=== PATIENT | female | born 1950 | race Caucasian/White ===

== ENCOUNTER → 2017-08-19 | Outpatient (CLI) | payer MEDICARE ==
[~2017-08-19] MED LIST: ALBUAER3 INH; ALPR.25 PO; BETH10TA2 PO; BOSWTAB2 PO; CURCPOW PO; D200CAP2 PO; ESCI20TA PO; FLUT50SP EACH NARE; FLUTI220I INH; LEFL1TAB3 PO; LEXA10TA PO; RANI150T PO; ROSU1TAB6 PO; TURM500C3 PO; VITA20003 PO; [UNRECOGNIZED DRUG - CODE] PO; [UNRECOGNIZED DRUG - CODE] PO
--- NOTE | 2017-08-19 14:28 | RADRPT ---
EXAM DATE/TIME: 08/19/2017 13:14 [place] COMPARISON: CHEST SINGLE AP, February 08, 2015, 9:27. INDICATIONS : Evaluate for pneumonia, pneumothorax or communicable disease. Pre op hysterectomy. MEDICAL HISTORY : None. SURGICAL HISTORY : None. ENCOUNTER: Initial ACUITY: 1 day PAIN SCORE: 0/10 LOCATION: Bilateral chest FINDINGS: A single view of the chest demonstrates the lungs to be symmetrically aerated without evidence of mas s, infiltrate or effusion. The cardiomediastinal contours are unremarkable. Osseous structures are intact. CONCLUSION: No acute cardio pulmonary process. Onur Tarango MD on August 19, 2017 at 14:25 Board Certified Radiologist. This report was verified electronically.
[2017-08-19 14:32] LABS: BILIRUBIN, URINE NEG (NEG); BLOOD, URINE NEG (NEG); GLUCOSE,URINE NEG (NEG); KETONE, URINE NEG (NEG); NITRITE,URINE NEG (NEG); URINE COLOR YELLOW (YELLW/STRAW); URINE LEUKOCYTE ESTERASE TRACE (NEG)
[2017-08-19 14:40] LABS: HEMATOCRIT 37.7 % (35.0-46.0); HEMOGLOBIN 13.2 GM/DL (11.6-15.3); MEAN CELL VOLUME 84.7 FL (80.0-100.0); MEAN CORPUSCULAR HEMOGLOBIN 29.6 PG (27.0-34.0); PLATELET COUNT 213 TH/MM3 (150-450); RED BLOOD COUNT 4.45 MIL/MM3 (4.00-5.30); RED CELL DISTRIBUTION WIDTH 13.6 % (11.6-17.2); WHITE BLOOD COUNT 6.2 TH/MM3 (4.0-11.0)
[2017-08-19 14:42] LABS: MUCUS URINE MANY /lpf (OCC); RBC, URINE 0-3 /hpf (0-3); SQUAMOUS EPITHELIAL CELL URINE > 8 /hpf (0-5)
[2017-08-19 14:43] LABS: BACTERIA, URINE FEW /hpf; RENAL EPITHELIAL CELLS 0-5 /hpf
--- NOTE | 2017-08-20 17:04 | EKG ---
Date Performed: 08/19/2017 Time Performed: 13:26:49 PTAGE: 67 years EKG: Sinus rhythm NORMAL ECG PREVIOUS TRACING : 02/08/2015 08.57 Since the previous tracing, no significant change noted DOCTOR: Kamryn Medina Interpretating Date/Time 08/20/2017 17:03:35
== END ==
LOC: PHPRE 12:54
PROVIDERS: ATTEND Obstetrics & Gynecology
DX: Z01.810 Encounter for preprocedural cardiovascular examination (principal); Z01.811 Encounter for preprocedural respiratory examination; Z01.812 Encounter for preprocedural laboratory examination
CPT/HCPCS: 36415; 71045; 81001; 85027; 86850; 86900; 86901; 86920; 93005

== ENCOUNTER → 2017-08-21 | Day surgery (SDC) | payer MEDICARE ==
[~2017-08-21] VITALS: Ht 167.6 cm; Wt 86.5 kg
[~2017-08-21] MED LIST changes: +ACETAMINOPHEN 1000 MG/100 ML 100 ML IV ONE; -ALPR.25 PO; +CHLORHEXIDINE GLUCONATE 2 % 1 PACK (2 CLOTHS) TOPICAL PRN; -CURCPOW PO; +HYDROmorphone HCL PF 1 MG/ML VIAL ONE; +LACTATED RINGER'S 1000 ML IV PRN; -LEXA10TA PO; +MIDAZOLAM HCL 2 MG/2 ML VIAL ONE; +NALOXONE HCL 0.4 MG/ML AMP ONE; +POVIDONE IODINE 5% (ANTISEPSIS KIT) 4 APPLICATIONS EACH NARE PRN; +SODIUM CHLORID 0.9% 500 ML IV PRN; +VASOPRESSIN 20 UNITS/ML VIAL ONE; -VITA20003 PO; -[UNRECOGNIZED DRUG - CODE] PO; +ceFAZolin 1,000 MG/NS 100 ML IV SCH; +oxyCODONE/ACETAMINOPHEN 5 MG/325 MG TAB ONE
--- NOTE | 2017-08-21 10:01 | PD.OP ---
Operative Report Date of Surgery: August 21, 2017 Preoperative Diagnosis: (1) PMB (postmenopausal bleeding) (2) Polyp of corpus uteri Postoperative Diagnosis: (1) Polyp of corpus uteri (2) PMB (postmenopausal bleeding) Procedure: laparoscopic supracervical hysterectomy with bilateral salpingectomy Anesthesia: NIKOLE Hammond Surgeon: Shiasta Jj Security Support Analyst(s): Rosales Villar Resident Surgeon: n/a Operation and Findings: Indications: [-This 67 y/o has had hysteroscopy and polypectomy in 2011 and 2014. She now has recutrrence of polyps by office biopsy and postmenopausal bleeding. She is also follwed for colon polyps. Juan Antonio grandmother had uterine cancer. She takes no exogenous hormones.] Findings: [-normal pelvis] Procedure: The patient was taken to the operating room and general anesthesia was administered with intubation. The patient was then positioned in low stirrups, and after prep and drape a Dunn catheter was placed. An open-sided speculum was placed and the anterior lip of the cervix was grasped with a tenaculum and the HUMI was placed in the uterus. The 12mm trocar was placed in the umbilicus after insufflation with a Veress needle. Then under direct visualization and using transillumination to avoid major blood vessels, 5mm ports were placed in the right and left lower quadrants. The scope was used with a grasper to note the findings described above. Then using the Harmonic scalpel, the round ligaments were divided, The incision was extended anteriorly from side to side and bladder flap was created. The tubes and ovaries were inspected, then the infundibulopelvic ligaments were transected at the pelvic sidewall and included with the uterine specimen. The broad ligaments were then divided with harmonic scalpel starting at the utero-ovarian ligament, proceeding down to the junction of the cervix and the uterus. Then using a "drilling" technique, the uterus was divided from the cervix. The morcellator was the used to morcellate the uterus and remove it. The suction-heel seam rubber was used throughout the case, and employed at the end of the case to check each pedicle, the ovaries and to irrigate out any remaining clots and debris. The case being complete, the pneumoperitoneum was released, the ports were removed, and the umbilical incision was closed on the fascia with 0 vicryl. 4-0 Monocryl was used subcuticularly on the skin edges, followed by sealing with Dermabond. The patient was awakened and taken to the recovery room awake and breathing on her own. She tolerated the procedure well. Sponge, needle and instrument counts were correct. Shaista Jj MD August 21, 2017 10:01
[2017-08-21 11:22] VITALS: BP 110/56; PULSE 61; RESP 16; TEMP 98; O2SAT 98
== END | disposition home or self-care (01) ==
LOC: PHSDC 06:03
PROVIDERS: ATTEND Obstetrics & Gynecology
DX: N95.0 Postmenopausal bleeding (principal); N84.0 Polyp of corpus uteri; N88.2 Stricture and stenosis of cervix uteri; Z80.49 Family history of malignant neoplasm of other genital organs; K31.84 Gastroparesis; E78.5 Hyperlipidemia, unspecified; I65.21 Occlusion and stenosis of right carotid artery; G47.30 Sleep apnea, unspecified; E55.9 Vitamin D deficiency, unspecified; J45.998 Other asthma
CPT/HCPCS: 00840; 58542; 88307; C1782; J0131; J0690; J1170; J2250; J3010; J7120; 88305; J2310